=== PATIENT | female | born 1970 | race African-American/Black ===

== ENCOUNTER 2018-10-20 20:16 | Emergency (ER) | payer OTHER ==
[~2018-10-20] VITALS: Ht 160 cm; Wt 104.3 kg
[2018-10-20 21:48] LABS: HEMATOCRIT 36.7 % (37.0-47.0); HEMOGLOBIN 11.8 gm/dL (12.0-15.0); MCH 24.5 pg (26.0-34.0); MCHC 32.2 g/dL (28.0-37.0); MCV 76.1 fL (80.0-100.0); RBC 4.82 mil/uL (4.20-5.00); RDW 15.9 % (10.5-14.5); WBC 10.3 thou/uL (4.0-11.0)
[2018-10-20 21:58] LABS: ANION GAP 9 mmol/L (7-16); BUN 15 mg/dL (7-18); CALCIUM 9.2 mg/dL (8.5-10.1); CHLORIDE 103 mmol/L (98-107); CO2 27 mmol/L (21-32); GLUCOSE 136 mg/dL (74-106); POTASSIUM 3.7 mmol/L (3.5-5.1); SODIUM 139 mmol/L (136-145)
[2018-10-20 22:07] LABS: TROPONIN-I <0.06 ng/mL (<0.06)
[2018-10-20 22:32] VITALS: BP 162/97
--- NOTE | 2018-10-21 08:21 | EKG ---
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1970 Requested By: Joie Rebollar Order Number: [id number] MD: Frank Bazan Measurements Intervals [place] Rate: 82 P: 60 [place]: 146 QRS: 21 QRSD: 74 T: 11 QT: 386 QTc: 451 Interpretive Statements Sinus rhythm No previous ECG available for comparison Electronically Signed On 10-21-2018 8:21:01 CDT by Frank Bazan [email or web address] ��������������������������������������������� <ELECTRONICALLY SIGNED> ���������������������������������������� By: Frank Bazan MD ��������������������������������������������� 10/21/18 0821 2147 [id number] Frank Bazan MD /KRYSTAL
== END 2018-10-20 22:36 | disposition home or self-care (01) ==
LOC: ER 20:16
PROVIDERS: Emergency Medicine
DX: I10 Essential (primary) hypertension (principal)

== ENCOUNTER 2018-12-17 13:45 | Emergency (ER) | payer OTHER ==
[~2018-12-17] VITALS: Ht 160 cm; Wt 106.6 kg
[2018-12-17 14:06] LABS: URINE BILIRUBIN NEGATIVE (Negative); URINE BLOOD 3+ (Negative); URINE GLUCOSE-RANDOM* NEGATIVE (Negative); URINE KETONES NEGATIVE (Negative); URINE LEUKOCYTES-REFLEX TRACE (Negative); URINE NITRITE-REFLEX NEGATIVE (Negative); URINE PROTEIN (DIPSTICK) 1+ (Negative); URINE UROBILINOGEN 0.2 E.U./dl (0.2-1.0)
[2018-12-17 14:10] LABS: URINE CLARITY CLOUDY; URINE COLOR REDDISH
[2018-12-17] MEDS ORDERED: COZAAR 25 MG TA25 M1 PO (14:14)
[2018-12-17 14:16] LABS: BACTERIA-REFLEX 1-9 Few /HPF (None Seen); CASTS None Seen /LPF (None Seen); CRYSTALS None Seen /LPF (None Seen); SQUAMOUS 0-3 Few /LPF (0-3); URINE RBC >20 Many /HPF (0-2); URINE WBC-REFLEX 0-5 Rare /HPF (0-5)
[2018-12-17 14:16] LABS: ABSOLUTE NEUTROPHILS 5.1 thou/uL (1.4-8.2); BASOPHILS 0.9 % (0.0-2.0); EOSINOPHILS 1.2 % (0.0-3.0); HEMOGLOBIN 9.6 gm/dL (12.0-15.0); LYMPHOCYTES 30.5 % (24.0-44.0); MCH 24.7 pg (26.0-34.0); MCV 77.2 fL (80.0-100.0); PLATELET COUNT 343 thou/uL (150-400); POLYS 61.4 % (36.0-66.0); RBC 3.88 mil/uL (4.20-5.00); RDW 16.2 % (10.5-14.5); WBC 8.2 thou/uL (4.0-11.0)
[2018-12-17 14:23] LABS: CALCIUM 8.8 mg/dL (8.5-10.1); CREATININE 1.1 mg/dL (0.6-1.0); POTASSIUM 3.1 mmol/L (3.5-5.1)
[2018-12-17 14:29] LABS: ALBUMIN 2.6 g/dL (3.4-5.0); TOTAL BILIRUBIN 0.4 mg/dL (<0.1-1.0); TOTAL PROTEIN 6.9 g/dL (6.4-8.2)
[2018-12-17] MEDS ORDERED: KEFLEX500 M1 PO (14:48)
[2018-12-17 15:02] VITALS: BP 143/62
== END 2018-12-17 15:00 | disposition home or self-care (01) ==
LOC: ER 13:45
PROVIDERS: Nurse Practitioner Family
DX: N39.0 Urinary tract infection, site not specified (principal); E87.6 Hypokalemia; R73.9 Hyperglycemia, unspecified; E86.9 Volume depletion, unspecified; I10 Essential (primary) hypertension

== ENCOUNTER 2020-03-17 04:39 | Emergency (ER) | payer OTHER ==
[~2020-03-17] VITALS: Ht 160 cm; Wt 95.3 kg
[~2020-03-17 04:39] MED LIST: COZAAR 25 MG TA25 M1 PO; KEFLEX500 M1 PO
[2020-03-17 05:09] LABS: ABSOLUTE NEUTROPHILS 7.3 thou/uL (1.4-8.2); BASOPHILS 0.2 % (0.0-2.0); EOSINOPHILS 1.7 % (0.0-3.0); HEMATOCRIT 33.2 % (37.0-47.0); HEMOGLOBIN 10.7 gm/dL (12.0-15.0); LYMPHOCYTES 38.3 % (24.0-44.0); MCH 23.5 pg (26.0-34.0); MCHC 32.1 g/dL (28.0-37.0); MCV 73.2 fL (80.0-100.0); MONOCYTES 7.8 % (1.0-8.0); PLATELET COUNT 414 thou/uL (150-400); RBC 4.53 mil/uL (4.20-5.00)
[2020-03-17 05:13] LABS: ANION GAP 12 mmol/L (7-16); BUN 9 mg/dL (7-18); CALCIUM 8.7 mg/dL (8.5-10.1); CHLORIDE 101 mmol/L (98-107); CO2 24 mmol/L (21-32); CREATININE 0.8 mg/dL (0.6-1.0); GLUCOSE 160 mg/dL (74-106); POTASSIUM 3.1 mmol/L (3.5-5.1); SODIUM 137 mmol/L (136-145)
[2020-03-17 05:23] LABS: ALBUMIN 3.3 g/dL (3.4-5.0); LIPASE 177 U/L (73-393); SGOT 23 U/L (15-37); SGPT 30 U/L (30-65); TOTAL BILIRUBIN 0.2 mg/dL (0.2-1.0); TOTAL PROTEIN 7.7 g/dL (6.4-8.2); TROPONIN-I <0.06 ng/mL (<0.06)
[2020-03-17 07:27] LABS: PLATELET ESTIMATE INCREASED
[2020-03-17 07:29] LABS: ANISOCYTOSIS 1+; HYPOCHROMASIA 1+; MICROCYTES 1+
[2020-03-17 10:05] VITALS: BP 162/93
--- NOTE | 2020-03-17 16:45 | EKG ---
[facility] [place] [address] ELECTROCARDIOGRAM REPORT Name: NURY BROWN Room #: DEP [facility]#: [id number] Admission: 03/17/20 Attend Phys: Discharge: 03/17/20 Date of : 70 Report #: [id number] THIS REPORT FOR: cc: Brandon Yeager MD, Kirk D. MD Lundgren, Craig H. 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[facility] : 1970 Requested By: New Patrick Order Number: [id number] MD: Alvarado King Measurements Intervals [place] Rate: 125 P: 49 [place]: 96 QRS: 17 QRSD: 74 T: -22 QT: 330 QTc: 476 Interpretive Statements Sinus tachycardia Probable anteroseptal infarct, old Nonspecific ST segment abnormality Compared to ECG 10/20/2018 21:47:53 Septal Q waves are more prominent Nonspecific ST segment abnormality is present Electronically Signed On 03-17-2020 16:45:10 CDT by Alvarado King [email or web address] <ELECTRONICALLY SIGNED> By: Alvarado King MD, [facility] 03/17/20 [id number] Alvarado King MD, [facility] /EPI
== END 2020-03-17 10:20 | disposition home or self-care (01) ==
LOC: ER 04:39
PROVIDERS: Emergency Medicine
DX: R07.89 Other chest pain (principal); I10 Essential (primary) hypertension; Z79.899 Other long term (current) drug therapy

== ENCOUNTER 2021-08-04 16:18 | Inpatient (IN) | payer OTHER ==
[~2021-08-04] VITALS: Ht 160 cm; Wt 93.2 kg
--- NOTE | ~2021-08-04 | HC ---
[facility] [place] [address] CONSULTATION Name: NURY BROWN Room #: 211-P ADM IN M.R.#: [id number] Admission: 08/04/21 Attend Phys: Rc Sheth MD Discharge: Date of : 70 Report #: [id number] THIS REPORT FOR: cc: NO FAMILY PHYSICIAN or PCP NO FAMILY PHYSICIAN or PCP Philipp Gao MD ~ DATE OF SERVICE: 08/05/2021 HISTORY OF PRESENT ILLNESS: A 51-year-old female patient who was evaluated by me because the patient had some numbness and weakness on the left side. It appeared to have become better and close to resolve. This happened spontaneously. She never had this kind of episode before. She thought she was putting the arm in an improper position and that is why this happened. The patient came to Emergency Room. I reviewed the notes from Emergency Room. It looks like the patient was seen by Emergency Room physician and they consulted [facility]. I do not find a note from [facility], but looks like the patient was mainly admitted because of symptoms of mostly admitted. REVIEW OF SYSTEMS: Indicates she does not see a family physician very often. The last time she saw her family physician was in 2019. She does not check her blood pressure. It is not clear what her baseline blood pressure is and when was checked the last time, she said it was checked in this hospital when she came here. I looked at those notes and she was here in the Emergency Room. The patient does not know why she came to the hospital at that time, but the notes indicated she came for chest tightness. That time, her blood pressure was 162/93. Otherwise, she says her review of systems is mostly unremarkable. She never had any stroke-like symptoms before. She does have a history of anxiety. She does not think anxiety is a big problem at the moment. Her blood pressure is high here, but she is not on any antihypertensive at home. She does have some history of urinary tract infections in the past. She is not complaining of any eye, ENT, cardiac, respiratory, GI, , musculoskeletal, constitutional, dermatological, hematological, psychiatric, throat, allergic symptom associated with present symptomatology. PAST MEDICAL HISTORY: Positive for some question of anxiety, but I do not think there is any significant other past history. FAMILY HISTORY: Negative for any stroke. SOCIAL HISTORY: She says she drinks alcohol on the weekend, the amount depends upon the person she is with and what kind of republican she is having. 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 PHYSICAL EXAMINATION: Indicate that she is alert. She is responsive. She is able to tell me what month and what date it is. Her speech looks intact. Cranial nerve examination II-XII was mostly unremarkable[place] [id number] CONSULTATION Name: NURY BROWN Room #: 211-P ADM IN M.R.#: [id number] Admission: 08/04/21 Attend Phys: Rc Sheth MD Discharge: Date of : 70 Report #: [id number] hemianopsia or any facial weakness. She is able to move all extremities against gravity. She had in fact symmetrical strength. She did reasonably well with the position sense on both sides. Her reflexes are symmetrical and plantar is mute. Tone is symmetrical on both sides. There is no ataxia noticed. I could not look at the patient's fundus. The patient had good hearing and vision. She does not have any dysmorphic features of eyes, ears, and face. Pulses in the legs are palpable. There is no edema, cyanosis, or jaundice. There is no thyroid mass. There is no carotid bruit. Cardiac examination does not show any atrial fibrillation. No respiratory difficulty was noticed. Blood pressure was 191/94, respiration was 16, pulse is 70, temperature is 97.5. Her blood pressure is persistently elevated when she is here. LABORATORY DATA: Labs indicate a white count is normal. She is otherwise well-developed individual and does not have any dysmorphic features of eyes, ears and face. She had multiple imaging studies done. I discussed those with the radiologist and reviewed the films myself. This patient has multiple small CVAs in the right cerebral hemisphere. CT-angiogram is clean. Head CT was unremarkable. IMPRESSION: Multiple small cerebrovascular accidents in the right cerebral hemisphere. It is quite likely that this patient is undiagnosed hypertensive for some time since she did not have any blood pressure check. These lacunar cerebrovascular accidents may all be because of hypertension and hypertensive encephalopathy. However, it is unusual to have a lacunar cerebrovascular accident with hypertensive encephalopathy, just on one side. The location of those lacunar cerebrovascular accidents is also not typical for hypertension, which tend to occur mostly in the basal ganglia region. Because of that, further workup is needed to evaluate this patient for any other etiology or at least rule that one out. RECOMMENDATIONS: 1. I discussed with the patient in detail her options and she understands that and she needs to follow up with a physician on a regular basis and monitor her blood pressure. I will suggest gradually lowering her blood pressure. She is probably hypertensive for some time. This blood pressure can be gradually lowered giving a chance to intracranial circulation to get accustomed to lower blood pressure. Since the vasculature is pretty open, it can be done reasonably fast like 25% reductions in about 24 hours and then going slowly after that. 2. This patient needs to be on combination of aspirin and Plavix. It looks like the patient was put on aspirin and Plavix, but no loading dose was given. If loading dose was not given, then this patient should have a loading dose. Presently, I will probably just go ahead and give this patient 300 mg extra because I think she received 75. Loading dose can be anywhere between 300-600. I will try to find out more and then add one of these dosages. 3. I ordered an extensive workup in this patient to look for any predisposition [facility] [address] [place] [address] CONSULTATION Name: NURY BROWN Room #: 211- ADM IN M.R.#: [id number] Admission: 08/04/21 Attend Phys: Rc Sheth MD Discharge: Date of : 70 Report #: [id number] for CVA. 4. I will put a Cardiology consult because she will need inpatient and outpatient evaluation for any source of embolization from the heart, although it is more likely that the CVAs are just because of her uncontrolled hypertension, but because of her young age, other etiologies need to be excluded. Thank you very much for this referral. The patient was discussed with the hospitalist, Dr. Sheth and I talked to the patient in detail and we will follow up this patient. By: [id number] Philipp Gao MD /nt
[2021-08-04 16:24] VITALS: BP 226/128
[2021-08-04 17:41] LABS: ABSOLUTE NEUTROPHILS 6.5 thou/uL (1.4-8.2); BASOPHILS 1.1 % (0.0-2.0); EOSINOPHILS 0.6 % (0.0-3.0); HEMATOCRIT 40.5 % (37.0-47.0); HEMOGLOBIN 12.8 gm/dL (12.0-15.0); LYMPHOCYTES 24.5 % (24.0-44.0); MCH 25.2 pg (26.0-34.0); MCHC 31.6 g/dL (28.0-37.0); MCV 79.6 fL (80.0-100.0); MONOCYTES 5.6 % (1.0-8.0); PLATELET COUNT 371 thou/uL (150-400); POLYS 68.2 % (36.0-66.0); RBC 5.08 mil/uL (4.20-5.00); RDW 15.6 % (10.5-14.5); WBC 9.5 thou/uL (4.0-11.0)
[2021-08-04 17:50] LABS: CREATININE 0.7 mg/dL (0.6-1.0); POTASSIUM 3.8 mmol/L (3.5-5.1)
[2021-08-04 17:55] LABS: APTT 29.3 Seconds (24.5-32.8); INR 1.01
[2021-08-04 18:00] LABS: ALBUMIN 3.3 g/dL (3.4-5.0); TOTAL BILIRUBIN 0.3 mg/dL (0.2-1.0)
--- NOTE | 2021-08-04 18:52 | NUR ---
TELENEUROLOGIST ASSESSING PT, THIS RN AT BEDSIDE TO ASSIST.
[2021-08-04 21:34] VITALS: BP 175/97
[2021-08-05] VITALS (8 sets, daily range): BP systolic 145–206; BP diastolic 69–102
[2021-08-05 05:30] LABS: HEMATOCRIT 37.5 % (37.0-47.0); HEMOGLOBIN 11.9 gm/dL (12.0-15.0); MCH 25.5 pg (26.0-34.0); MCHC 31.6 g/dL (28.0-37.0); MCV 80.7 fL (80.0-100.0); RBC 4.64 mil/uL (4.20-5.00); WBC 8.2 thou/uL (4.0-11.0)
[2021-08-05 05:58] LABS: BUN 6 mg/dL (7-18); CALCIUM 8.2 mg/dL (8.5-10.1); CHLORIDE 104 mmol/L (98-107); CHOLESTEROL 204 mg/dL (<200); CREATININE 0.8 mg/dL (0.6-1.0); HDL CHOLESTEROL 30 mg/dL (>40); LDL CHOLESTEROL 131 mg/dL (<100); POTASSIUM 3.8 mmol/L (3.5-5.1); SODIUM 140 mmol/L (136-145); TC:HDL 6.8 Ratio (Not establshd); TRIGLYCERIDE 216 mg/dL (<150); VLDL 43 mg/dL (<40)
[2021-08-05 06:10] LABS: ANION GAP 11 mmol/L (7-16); CO2 25 mmol/L (21-32); GLUCOSE 99 mg/dL (74-106)
[2021-08-05 06:14] LABS: SERUM ASSESSMENT Clear
--- NOTE | 2021-08-05 06:43 | NUR ---
END OF SHIFT SUMMARY: PT RESTED WITH EYES CLOSED FOR MOST OF THE EVENING, NO CHANGE IN CONDITION OR COMPLAINTS NOTED FROM PT. PT WAS ASSISTED TO THE RESTROOM ONE TIME DURING THE NIGHT. NIH REMAINS 0 AT THIS TIME. CALL LIGHT IN REACH AND PT EDUCATED ON USE. NO QUESTIONS, CONCERNS, OR NEEDS FROM PT AT THIS TIME. VSS REAMIN STABLE.
--- NOTE | 2021-08-05 08:16 | EKG ---
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1970 Requested By: Heri Zamarripa Order Number: [id number] MD: Alvarado King Measurements Intervals [place] Rate: 93 P: 7 [place]: 134 QRS: 42 QRSD: 75 T: 26 QT: 374 QTc: 466 Interpretive Statements Sinus rhythm Probable left atrial enlargement Probable anteroseptal infarct, old Compared to ECG 03/17/2020 04:44:16 Sinus tachycardia no longer present Electronically Signed On 08-05-2021 8:15:55 COMPLIANCE TECHNICIAN by Alvarado King [email or web address] <ELECTRONICALLY SIGNED> By: Alvarado King MD, [facility] 08/05/21 0815 1635 34 Alvarado King MD, FACC /EPI
--- NOTE | 2021-08-05 19:32 | NUR ---
ADMITTED FROM ED. PT IS AXOX4, PLEASANT; VSS, AFEBRILE, SR ON THE MONITOR. PT C/O HEADACHE; UPON ADMISSION PT BP WAS ELEVATED 190/94. DR POWELL CONSULTED, CARDIOLOGY CONSULTED, NEURO CONSULTED. POC IS TO CONTROL BP, US RENAL IN AM, ECHO, REPEAT MRI. PT STATES HEADACHE IS GONE, SBP 140S. PT TO BE NPO AFTER MIDNIGHT. LOW FALL PRECAUTIONS IN PLACE. WILL CONTINUE TO MONITOR AND ASSESS NIH. NO CONCERNS AT THIS TIME.
--- NOTE | 2021-08-05 19:50 | NUR ---
PT RESTING IN BED, LOOKING AT PHONE. PT VERBALIZED WILL CALL FOR ASSIST WHEN NEEDED. PROVIDED HS SNACK. NPO P MN AND VERBALIZED UNDERSTANDING.
[2021-08-06 04:41] VITALS: BP 134/57
[2021-08-06 05:12] LABS: GLYCOHEMOGLOBIN (HGB A1C) 6.2 % (4.8-5.6)
[2021-08-06 08:36] VITALS: BP 181/94
[2021-08-06 11:21] VITALS: BP 166/88
--- NOTE | 2021-08-06 11:59 | NUR ---
Pt IS UP AD ALEX PER NURSING. IS A&O X4. MOVING L UE TO FUNCTIONALLY DRINK WATER. 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 HAS 6 STAIRS INSIDE AND OUTSIDE OF HOME, BUT TAKES THEM SAFELY, ONE STEP AT A TIME. AMB AROUND ROOM WITHOUT LOB. RAPID MOVEMENTS AND FINGER TO NOSE TESTED, SLIGHT DELAY IN L UE, BUT NO SIGNIFICANT DIFFERENCES. Pt STATES NO CONCERNS BESIDES SLIGHT DELAY IN L UE MOVEMENT. Pt IS SAFE TO D/C FROM PT FOR MOBILITY.
--- NOTE | 2021-08-06 13:26 | NUR ---
I have reviewed the documentation by DEJA BOOTH from 08/06/21 to 08/06/21 and I concur with it. DEN MILES, PT, DPT
--- NOTE | 2021-08-06 15:06 | NUR ---
PATIENT ADMITTED FOR ACCELERATED HTN. CHART REVIEWED AND DISCUSSED WITH CARE TEAM. CM MET WITH PT THIS DAY. CM ROLE INTRODUCED. PT REPORTS SHE LIVES AT HOME WITH HER . INDEP WITH ADLS AND MOBILITY DECK CADET. DENIES USE OF ASST DEVICE OR HH/SNF/REHAB IN THE PAST. PT REPORTS WEAKNESS TO LEFT ARM HOWEVER REPORTS IT IS BETTER AND SHE ABLE TO MOVE EXT MORE. SHE DENIES NEED FOR HH/SNF ONCE MEDICALLY STABLE TO DC. PT REPORTS IS SHE NEEDS THERAPY SHE WOULD PREFER OUTPT. THERAPY RECOMMENDED HOME WITH NO NEEDS. CM FOLLOWING FOR DC NEEDS AND PLANNING.
[2021-08-06 15:34] VITALS: BP 198/97
[2021-08-06 19:55] VITALS: BP 169/89
[2021-08-07 00:36] VITALS: BP 183/109
[2021-08-07 04:52] VITALS: BP 131/85
[2021-08-07 07:20] VITALS: BP 177/101
--- NOTE | 2021-08-07 07:39 | NUR ---
ALERT AND ORIENTED, SR ON TELE, DENIES PAIN, NUMBNESS OR TINGLING, ASSESSMENTS CHARTED, NIH SCALE 0, NO DISTRESS NOTED, PASSED ON REPORT TO DAY RN
--- NOTE | 2021-08-07 09:10 | TEE ---
[facility] [place] [address] TRANSESOPHAGEAL ECHOCARDIOGRAM Name: NURY BROWN Room #: 211-P ADM IN M.R.#: [id number] Admission: 08/04/21 Attend Phys: Rc Sheth MD Discharge: Date of : 70 Report #: [id number] THIS REPORT FOR: cc: NO FAMILY PHYSICIAN or PCP NO FAMILY PHYSICIAN or PCP Uday Harris MD [facility] ~ APPROVED REPORT Study performed: 08/07/2021 08:22:36 EXAM: Comprehensive 2D, Doppler, and color-flow Echocardiogram Patient Location: In-Patient Room #: [facility] Status: routine BSA: 1.93 HR: 97 bpm Rhythm: NSR Other Information Study Quality: Good Indications CVA/TIA Echo Enhancing Agent Indication: Rule out Shunt Agent(s) / Amount(s) Used: Agitated Saline 7 cc Procedure After obtaining informed consent, patient underwent transesophageal echo in the [employer]. Type of Sedation : Conscious Sedation Sedation was administered by Nurse. Sedation start time: 827 Case end Time: 832 Sedation was achieved intravenously with: Versed (4mg) Fentanyl (50mcg) Transesophageal probe was inserted and advanced into esophagus without difficulty by Uday Harris MD. Echo enhancement indication: R/O Septal defect. Echo enhancement agent administered: Agitated Saline The MEGHANN was performed without complications. Throughout the procedure, the blood pressure, pulse oximetry, cardiac [facility] [address] [place] [address] TRANSESOPHAGEAL ECHOCARDIOGRAM Name: NURY BROWN Room #: 211-P ADM IN M.R.#: [id number] Admission: 08/04/21 Attend Phys: Rc Sheth MD Discharge: Date of : 70 Report #: [id number] rhythm, and rate were monitored. The patient tolerated the procedure without adverse effects. Recovery from conscious sedation was uneventful and vital signs were stable. Left Ventricle The left ventricle is normal size. There is normal LV segmental wall motion. There is normal left ventricular wall thickness. Left ventricular systolic function is normal. The left ventricular ejection fraction is within the normal range. LVEF is 55-60%. Right Ventricle The right ventricle is normal size. The right ventricular systolic function is normal. Atria The left atrium size is normal. The right atrium size is normal. Aortic Valve The aortic valve is normal in structure. No aortic regurgitation is present. There is no aortic valvular stenosis. Mitral Valve The mitral valve is normal in structure. Mild to moderate mitral regurgitation. No evidence of mitral valve stenosis. Tricuspid Valve The tricuspid valve is normal in structure. There is no tricuspid valve regurgitation noted. Pulmonic Valve The pulmonary valve is normal in structure. There is no pulmonic valvular regurgitation. Great Vessels The aortic root is normal in size. Pericardium There is no pericardial effusion. <Conclusion> Consent was obtained Timeout performed After appropriate sedation esophageal probe was advanced without difficulty [facility] [address] [place] [address] TRANSESOPHAGEAL ECHOCARDIOGRAM Name: NURY BROWN Room #: 211-P [facility] IN M.R.#: [id number] Admission: 08/04/21 Attend Phys: Rc Sheth MD Discharge: Date of : 70 Report #: [id number] Left atrial appendage, moderate size no evidence of clots or mass detected Normal atrial size Normal aortic valve structure and function Mild to moderate central mitral valve insufficiency No tricuspid valve insufficiency Normal aortic root size No pericardial effusion Minimal calcification throughout the aorta No evidence of ASD/VSD by color flow/bubble study Patient tolerated procedure well <ELECTRONICALLY SIGNED> By: Uday Harris MD, FACC 08/07/21909 9 9 Uday Harris MD, FACC /INF
--- NOTE | 2021-08-07 09:49 | NUR ---
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 PT BP ELEVATED WITH PROCEDURE SO 5MG LOPRESSOR GIVEN. INTRAPROCEDURE 5MG VERSED AND 75MCG FENT GIVEN. BACK TO FLOOR TO [place] AT 0915 VIA
[2021-08-07] MEDS ORDERED: CARVEDILOL12.5 MG PO (09:50)
[2021-08-07] MEDS ORDERED: BAYER CHEWABLE81 MG PO (09:50)
[2021-08-07] MEDS ORDERED: BENICAR20 MG PO (09:50)
[2021-08-07] MEDS ORDERED: CLOPIDOGREL75 MG PO (09:50)
[2021-08-07] MEDS ORDERED: LIPITOR40 MG PO (09:50)
[2021-08-07 11:30] VITALS: BP 146/81
[2021-08-07 14:52] VITALS: BP 146/81
[2021-08-07 15:15] VITALS: BP 172/86
--- NOTE | 2021-08-07 16:01 | NUR ---
ASSESSMENT CHARTED - MEDS PER [facility] - HANNAH DIET AND FLUIDS. UP AD ALEX ON THE UNIT MEGHANN COMPLETED THIS AM - NO PROBLEMS WITH SWALLOWING POST PROCEDURE. PT HOME THIS AFTERNOON - INSTRUCTION RE HOME MEDS/ CARE AND FOLLOW UP GIVEN TO PATIENT - STATED UNDERSTANDING OF INSTRUCTION GIVEN - HOME VIA PVT VEHICLE ACCOMAPNIED BY . NO CO'S AT TIME OF D/C.
== END 2021-08-07 16:05 | disposition home or self-care (01) | DRG 65 ==
LOC: ER 16:18 → 2N 19:15 → EROBS 19:15 → 2N 08-05 12:43
PROVIDERS: Emergency Medicine; Nurse Practitioner Family; Psychiatry & Neurology Neuromuscular Medicine; ADMIT Hospitalist; ATTEND Hospitalist
PROC: B24BZZ4 Ultrasonography of Heart with Aorta, Transesophageal (ICD-10-PCS; principal; 2021-08-07)
PROC: 5A0935A Assistance with Respiratory Ventilation, Less than 24 Consecutive Hours, High Flow/Velocity Cannula (ICD-10-PCS; principal; 2021-08-07)
DX: I63.81 Other cerebral infarction due to occlusion or stenosis of small artery (principal); G81.94 Hemiplegia, unspecified affecting left nondominant side; I16.0 Hypertensive urgency; Z20.822 Contact with and (suspected) exposure to COVID-19; I10 Essential (primary) hypertension; F41.9 Anxiety disorder, unspecified; Z60.2 Problems related to living alone; E78.5 Hyperlipidemia, unspecified; G83.24 Monoplegia of upper limb affecting left nondominant side; Z79.82 Long term (current) use of aspirin; Z79.899 Other long term (current) drug therapy
CPT/HCPCS: 10081